=== PATIENT | female | born 1970 | race American Indian/Alaskan Native ===

== ENCOUNTER 2017-03-23 21:25 | Emergency (ER) | payer OTHER ==
[2017-03-23 22:37] LABS: Basophils % (Auto) 0.9 % (0.0-1.8); Eosinophils % (Auto) 5.2 % (0.0-4.3); Hematocrit 42.4 % (30.3-42.9); Hemoglobin 13.7 gm/dl (10.1-14.3); Mean Corpuscular HGB Conc 32 % (30-34); Mean Corpuscular Hemoglobin 29 pg (28-32); Mean Corpuscular Volume 89 fl (79-97); Platelet Count 343 K/mm3 (140-440); Red Blood Count 4.76 M/mm3 (3.65-5.03); Red Cell Distribution Width 15.1 % (13.2-15.2); White Blood Count 8.2 K/mm3 (4.5-11.0)
[2017-03-23 23:07] LABS: Anion Gap 20 mmol/L; BUN/Creatinine Ratio 23.33; Blood Urea Nitrogen 14 mg/dL (7-17); Calcium 9.8 mg/dL (8.4-10.2); Carbon Dioxide 21 mmol/L (22-30); Chloride 102.8 mmol/L (98-107); Glucose 91 mg/dL (65-100); Potassium 3.9 mmol/L (3.6-5.0); Sodium 140 mmol/L (137-145)
--- NOTE | 2017-03-23 23:10 | XRay Report ---
FINAL REPORT EXAM: XR CHEST ROUTINE 2V HISTORY: chest pain TECHNIQUE: PA and lateral chest radiographs PRIORS: None. FINDINGS: No focal consolidations are seen in the lungs and there are no pleural effusions.The cardiomediastinal silhouette is within normal limits for size and contour. No acute osseous abnormality is identified. IMPRESSION: 1. No definite radiographic evidence of acute cardiopulmonary disease.
--- NOTE | 2017-03-24 09:11 | Emergency Department Report ---
ED Chest Pain HPI - General Chief Complaint: Chest Pain Stated Complaint: ASTHMA/RYLAN Time Seen by Provider: 03/24/17 08:58 Source: patient, RN notes reviewed, old records reviewed Mode of arrival: Ambulatory Limitations: No Limitations - History of Present Illness Initial Comments: This is a 47-year-old female. She is previously unknown to me. She does not have a local primary care doctor. She has a past medical history of asthma and eczema. The patient presents to the ER complaining of right-sided and central chest wall pain. The pain is achy. It does not radiate to the back, arms or neck. There is no nausea, vomiting or diaphoresis. There is no exertional shortness of breath. There is no leg pain. There is no leg swelling. Does not take control tablets. No recent cocaine use. No recent aspirin use. No recent surgeries. Patient also complains of cough, wheezing, mucus production, "feels like my asthma is acting up." The pain has been present on and off since yesterday. it does not have exacerbating or relieving factors. MD Complaint: chest pain -: Gradual Onset: during rest Pain Location: substernal, right chest Pain Radiation: none Severity: mild Severity scale (0 -10): 5 Quality: aching Consistency: intermittent Improves With: nothing Worsens With: nothing re: denies: nausea, vomting, diaphoresis Other Symptoms: cough Treatments Prior to Arrival: none Aspirin use within the Past 7 Days: (0) No - Related Data On Oral Contraceptives: No Previous Rx's Medication Instructions Recorded Last Taken Type ALBUTEROL NEB's [Proventil 0.083% 2.5 mg IH TID PRN #1 box 06/12/14 10/13/14 Rx NEBS] Acetaminophen/Codeine 1 tab PO Q6H PRN #14 tab 06/12/14 06/20/14 Rx [Acetaminophen-Codeine #3 TAB] Prednisone [Prednisone 10 mg 10 mg PO .TAPER #1 tab.ds.pk 06/12/14 Unknown Rx (6-Day Pack, 21 Tabs)] traMADol [Ultram 50 MG tab] 50 mg PO Q6HR PRN #12 tablet 07/20/14 07/20/14 Rx Doxycycline [Vibramycin CAP] 100 mg PO BID #14 capsule 10/16/14 Unknown Rx Ibuprofen [Motrin] 800 mg PO Q8H PRN #30 tablet 10/16/14 Unknown Rx Methylergonovine [Methergine] 0.2 mg PO Q8HR #6 tablet 10/16/14 Unknown Rx Albuterol Sulfate [Proair 90 mcg IH Q4HR PRN #2 aer.pow.ba 03/24/17 Unknown Rx Respiclick] Aspirin [Adult Low Dose Aspirin EC] 81 mg PO QDAY #30 tablet. 03/24/17 Unknown Rx Allergies Allergy/AdvReac Type Severity Reaction Status Date / Time Penicillins Allergy Unknown Verified 06/12/14 01:17 EDT Heart Score - HEART Score History: Slightly suspicious EKG: Normal Age: < 45 Risk factors: No known risk factors Troponin: < normal limit HEART Score: 0 - Critical Actions Critical Actions: 0-3 pts:0.9-1.7%risk of adverse cardiac event.Candidate for discharge ED Review of Systems ROS: Stated complaint: ASTHMA/RYLAN Other details as noted in HPI Constitutional: denies: diaphoresis, fever, malaise Eyes: denies: vision change ENT: denies: epistaxis Respiratory: cough Cardiovascular: chest pain Gastrointestinal: denies: vomiting Genitourinary: denies: dysuria Musculoskeletal: denies: back pain Skin: denies: lesions Neurological: denies: weakness ED Past Medical Hx - Past Medical History Previous Medical History?: Yes Hx Hypertension: No Hx Congestive Heart Failure: No Hx Diabetes: No Hx Asthma: Yes Hx COPD: No Hx HIV: No Additional medical history: eczema - Surgical History Past Surgical History?: Yes Additional Surgical History: cyst removal, - Social History Smoking Status: Never Smoker - Medications Home Medications: Home Medications Medication Instructions Recorded Confirmed Last Taken Type ALBUTEROL NEB's [Proventil 0.083% 2.5 mg IH TID PRN #1 box 06/12/14 10/16/1412/23 Rx NEBS] Acetaminophen/Codeine 1 tab PO Q6H PRN #14 tab 06/12/14 10/16/14 06/20/14 Rx [Acetaminophen-Codeine #3 TAB] Prednisone [Prednisone 10 mg 10 mg PO .TAPER #1 tab.ds.pk 06/12/14 10/16/14 Unknown Rx (6-Day Pack, 21 Tabs)] traMADol [Ultram 50 MG tab] 50 mg PO Q6HR PRN #12 tablet 07/20/14 10/16/1407/20 Rx Doxycycline [Vibramycin CAP] 100 mg PO BID #14 capsule 10/16/14 Unknown Rx Ibuprofen [Motrin] 800 mg PO Q8H PRN #30 tablet 10/16/14 Unknown Rx Methylergonovine [Methergine] 0.2 mg PO Q8HR #6 tablet 10/16/14 Unknown Rx Albuterol Sulfate [Proair 90 mcg IH Q4HR PRN #2 aer.pow.ba 03/24/17 Unknown Rx Respiclick] Aspirin [Adult Low Dose Aspirin EC] 81 mg PO QDAY #30 tablet. 03/24/17 Unknown Rx ED Physical Exam - General Limitations: No Limitations General appearance: alert, in no apparent distress - Head Head exam: Present: atraumatic, normocephalic - Eye Eye exam: Present: normal appearance, EOMI. Absent: nystagmus - ENT ENT exam: Present: normal exam, normal orophraynx, mucous membranes moist, normal external ear exam - Neck Neck exam: Present: normal inspection, full ROM. Absent: tenderness, meningismus - Respiratory Respiratory exam: Present: normal lung sounds bilaterally. Absent: respiratory distress, wheezes, rales, rhonchi, stridor, chest wall tenderness, accessory muscle use, decreased breath sounds, prolonged expiratory - Cardiovascular Cardiovascular Exam: Present: regular rate, normal rhythm, normal heart sounds. Absent: bradycardia, tachycardia, systolic murmur, diastolic murmur, rubs, gallop - GI/Abdominal GI/Abdominal exam: Present: soft, normal bowel sounds. Absent: distended, tenderness, guarding, rebound, rigid, pulsatile mass - Extremities Exam Extremities exam: Present: normal inspection, full ROM, normal capillary refill. Absent: pedal edema, joint swelling, calf tenderness - Back Exam Back exam: Present: normal inspection, full ROM. Absent: tenderness, CVA tenderness (R), CVA tenderness (L), muscle spasm, paraspinal tenderness, vertebral tenderness - Neurological Exam Neurological exam: Present: alert, oriented X3, normal gait, other (Extraocular movements intact. Tongue midline. No facial droop. Facial sensation intact to light touch in the V1, V2, V3 distribution bilaterally. 5 and 5 strength in 4 extremities.. Sensation is intact to light touch in 4 extremities.). Absent : motor sensory deficit - Psychiatric Psychiatric exam: Present: normal affect, normal mood - Skin Skin exam: Present: warm, dry, intact, normal color. Absent: rash ED Course Vital Signs 03/23/17 03/24/17 03/24/17 21:45 04:03 08:46 Temperature 98.4 F 99.1 F Pulse Rate 86 78 Respiratory 18 20 Rate Blood Pressure 124/73 Blood Pressure 125/57 [Left] O2 Sat by Pulse 100 99 Oximetry 03/24/17 03/24/17 08:48 10:58 Temperature 98.6 F Pulse Rate 82 Respiratory 20 18 Rate Blood Pressure Blood Pressure 115/65 [Left] O2 Sat by Pulse 100 100 Oximetry - Reevaluation(s) Reevaluation #1: 03/24/17 10:19 d-dimer is negative. Patient is resting comfortably. Patient will be discharged. GABRIEL score - Gabriel Score Age > 65: (0) No Aspirin use within the Past 7 Days: (0) No 3 or more CAD Risk Factors: (0) No 2 or more Angina events in past 24 hrs: (0) No Known CAD with more than 50% Stenosis: (0) No Elevated Cardiac Markers: (0) No ST Deviation Greater than 0.5mm: (0) No GABRIEL Score: 0 ED Medical Decision Making - Lab Data Result diagrams: 03/23/17 22:09 03/23/17 22:09 Vital Signs 03/23/17 03/24/17 03/24/17 21:45 04:03 08:46 Temperature 98.4 F 99.1 F Pulse Rate 86 78 Respiratory 18 20 Rate Blood Pressure 124/73 Blood Pressure 125/57 [Left] O2 Sat by Pulse 100 99 Oximetry 03/24/17 08:48 Temperature Pulse Rate Respiratory 20 Rate Blood Pressure Blood Pressure [Left] O2 Sat by Pulse 100 Oximetry Lab Results 03/23/17 03/23/17 03/23/17 Range/Units 22:00 22:09 22:09 WBC 8.2 (4.5-11.0) K/mm3 RBC 4.76 (3.65-5.03) M/mm3 Hgb 13.7 (10.1-14.3) gm/dl Hct 42.4 (30.3-42.9) % MCV 89 (79-97) fl MCH 29 (28-32) pg MCHC 32 (30-34) % RDW 15.1 (13.2-15.2) % Plt Count 343 (140-440) K/mm3 Lymph % (Auto) 32.9 (13.4-35.0) % Baldwin % (Auto) 9.1 H (0.0-7.3) % Eos % (Auto) 5.2 H (0.0-4.3) % Baso % (Auto) 0.9 (0.0-1.8) % Lymph # 2.7 (1.2-5.4) K/mm3 Baldwin # 0.7 (0.0-0.8) K/mm3 Eos # 0.4 (0.0-0.4) K/mm3 Baso # 0.1 (0.0-0.1) K/mm3 Seg Neutrophils % 51.9 (40.0-70.0) % Seg Neutrophils # 4.3 (1.8-7.7) K/mm3 Sodium 140 (137-145) mmol/L Potassium 3.9 (3.6-5.0) mmol/L Chloride 102.8 (98-107) mmol/L Carbon Dioxide 21 L (22-30) mmol/L Anion Gap 20 mmol/L BUN 14 (7-17) mg/dL Creatinine 0.6 L (0.7-1.2) mg/dL Estimated GFR > 60 ml/min BUN/Creatinine Ratio 23.33 % Glucose 91 (65-100) mg/dL Calcium 9.8 (8.4-10.2) mg/dL Troponin T < 0.010 (0.00-0.029) ng/mL Urine HCG, Qual Negative (Negative) 03/24/17 03/24/17 Range/Units 00:15 03:41 WBC (4.5-11.0) K/mm3 RBC (3.65-5.03) M/mm3 Hgb (10.1-14.3) gm/dl Hct (30.3-42.9) % MCV (79-97) fl MCH (28-32) pg MCHC (30-34) % RDW (13.2-15.2) % Plt Count (140-440) K/mm3 Lymph % (Auto) (13.4-35.0) % Baldwin % (Auto) (0.0-7.3) % Eos % (Auto) (0.0-4.3) % Baso % (Auto) (0.0-1.8) % Lymph # (1.2-5.4) K/mm3 Baldwin # (0.0-0.8) K/mm3 Eos # (0.0-0.4) K/mm3 Baso # (0.0-0.1) K/mm3 Seg Neutrophils % (40.0-70.0) % Seg Neutrophils # (1.8-7.7) K/mm3 Sodium (137-145) mmol/L Potassium (3.6-5.0) mmol/L Chloride (98-107) mmol/L Carbon Dioxide (22-30) mmol/L Anion Gap mmol/L BUN (7-17) mg/dL Creatinine (0.7-1.2) mg/dL Estimated GFR ml/min BUN/Creatinine Ratio % Glucose (65-100) mg/dL Calcium (8.4-10.2) mg/dL Troponin T < 0.010 < 0.010 (0.00-0.029) ng/mL Urine HCG, Qual (Negative) - EKG Data -: EKG Interpreted by Mt EKG shows normal: sinus rhythm Rate: normal - EKG Data 03/24/17 09:27 EKG #1 demonstrates normal sinus, 89 bpm, normal intervals, normal axis, motion artifact, not consistent with STEMI. Unchanged from prior EKG. EKG #2 demonstrates normal sinus, 81 bpm, normal intervals, normal axis, not morphologically consistent with stemi - Radiology Data Radiology results: image reviewed X-ray of the chest is negative for acute disease - Medical Decision Making Differential diagnosis: Acute coronary syndrome, pulmonary embolus, asthma, anemia, pericardial effusion Pneumonia Assessment and plan: 47-year-old female who complains of chest pain and shortness of breath. She is low risk by GABRIEL score, low risk by heart score, troponin negative 3, EKG within normal limits 2, no pulmonary embolus or DVT risk factors, low risk by well's criteria, perc negative. Declines pain medication at this time. Not wheezing at this time. X-ray of the chest is negative. D-dimer ordered. Critical care attestation.: If time is entered above; I have spent that time in minutes in the direct care of this critically ill patient, excluding procedure time. ED Disposition Clinical Impression: Chest pain Disposition: DC-01 TO HOME OR SELFCARE Is pt being admited?: No Does the pt Need Aspirin: No Condition: Stable Instructions: Chest Pain (ED) Additional Instructions: Continue current outpatient medications. Follow up with any of the listed cardiology specialists within the next 3-5 days. Return to the ER right away with new pain, worsening pain, migration of pain, fevers, chills, confusion, chest pain, shortness of breath, (symptoms which are new, worsening or different ). Otherwise, take the medications as directed and follow up as directed. Prescriptions: Albuterol Sulfate [Proair Respiclick] 90 mcg IH Q4HR PRN #2 aer.pow.ba PRN Reason: Wheezing Aspirin [Adult Low Dose Aspirin EC] 81 mg PO QDAY #30 tablet. Referrals: PRIMARY MD DEBORAH [Primary Care Provider] - 3-5 Days YUAN GAONA MD [Staff Physician] - 3-5 Days MARIO ADAM MD [Staff Physician] - 3-5 Days
[2017-03-24 10:13] LABS: INR 1.01 (0.87-1.13)
[2017-03-24 10:59] VITALS: BP 115/65
== END 2017-03-24 10:58 | disposition home or self-care (01) ==
LOC: ED 21:25
DX: R07.89 Other chest pain (principal); R05 Cough; Z88.0 Allergy status to penicillin
CPT/HCPCS: 36415; 71020; 80048; 81025; 84484; 85025; 85379; 85610; 93005; 93010; 99285

== ENCOUNTER 2021-11-27 20:23 | Emergency (ER) | payer SELFPAY ==
[2021-11-27] MEDS ORDERED: diphenhydrAMINE 25 MG CAP PO ONE (20:42)
--- NOTE | 2021-11-27 21:43 | Emergency Department Report ---
ED General Adult HPI - General Chief complaint: Animal Bite Stated complaint: ANT BITE Time Seen by Provider: 11/27/21 20:40 Source: patient, EMS Mode of arrival: Ambulatory Limitations: No Limitations - History of Present Illness Initial comments: Is a 51-year-old female who presents for an 16 to right leg and hand. She takes itching. There is no erythema no swelling no laceration no bleeding no drainage. Symptoms are exacerbated by itch scratch cycle, symptoms are relieved by itch scratch cycle. There is no swelling, no shortness of breath no wheezing no chest pain no dizziness or lightheadedness. Patient denies allergies. Patient rates symptoms at 3/10 at this time. - Related Data Previous Rx's Medication Instructions Recorded Last Taken Type ALBUTEROL NEB's [Proventil 0.083% 2.5 mg IH TID PRN #1 box 06/12/14 10/13/14 Rx NEBS] Acetaminophen/Codeine 1 tab PO Q6H PRN #14 tab 06/12/14 06/20/14 Rx [Acetaminophen-Codeine #3 TAB] Prednisone [Prednisone 10 mg 10 mg PO .TAPER #1 tab.ds.pk 06/12/14 Unknown Rx (6-Day Pack, 21 Tabs)] traMADoL [Ultram 50 MG tab] 50 mg PO Q6HR PRN #12 tablet 07/20/14 07/20/14 Rx DOXYCYCLINE Hyclate [Vibramycin 100 mg PO BID #14 capsule 10/16/14 Unknown Rx CAP] Ibuprofen [Motrin] 800 mg PO Q8H PRN #30 tablet 10/16/14 Unknown Rx Methylergonovine [Methergine] 0.2 mg PO Q8HR #6 tablet 10/16/14 Unknown Rx Albuterol Sulfate [Proair 90 mcg IH Q4HR PRN #2 aer.pow.ba 03/24/17 Unknown Rx Respiclick] Aspirin [Adult Low Dose Aspirin EC] 81 mg PO QDAY #30 tablet.dr 03/24/17 Unknown Rx Famotidine [Pepcid] 20 mg PO BID 7 Days #14 tablet 11/27/21 Unknown Rx diphenhydrAMINE [Benadryl CAP] 25 mg PO Q8HR PRN 7 Days #30 11/27/21 Unknown Rx capsule predniSONE [Deltasone] 20 mg PO QDAY 5 Days #5 tab 11/27/21 Unknown Rx Allergies Allergy/AdvReac Type Severity Reaction Status Date / Time Penicillins Allergy Unknown Verified 06/12/14 01:17 EDT ED Review of Systems ROS: Stated complaint: ANT BITE Other details as noted in HPI Constitutional: denies: chills, fever Eyes: denies: eye pain, eye discharge, vision change ENT: denies: ear pain, throat pain Respiratory: denies: cough, shortness of breath, wheezing Cardiovascular: denies: chest pain, palpitations Endocrine: no symptoms reported Gastrointestinal: denies: abdominal pain, nausea, diarrhea Genitourinary: denies: urgency, dysuria, discharge Musculoskeletal: denies: back pain, joint swelling, arthralgia Skin: rash (Hand pruritus mild erythema no drainage no papules) Neurological: denies: headache, weakness, paresthesias Psychiatric: denies: anxiety, depression ED Past Medical Hx - Past Medical History Previous Medical History?: Yes Hx Hypertension: No Hx Congestive Heart Failure: No Hx Diabetes: No Hx Asthma: Yes Hx COPD: No Hx HIV: No Additional medical history: eczema - Surgical History Past Surgical History?: Yes Additional Surgical History: cyst removal, - Social History Smoking Status: Never Smoker - Medications Home Medications: Home Medications Medication Instructions Recorded Confirmed Last Taken Type ALBUTEROL NEB's [Proventil 0.083% 2.5 mg IH TID PRN #1 box 06/12/14 10/16/14 10/13/14 Rx NEBS] Acetaminophen/Codeine 1 tab PO Q6H PRN #14 tab 06/12/14 10/16/14 06/20/14 Rx [Acetaminophen-Codeine #3 TAB] Prednisone [Prednisone 10 mg 10 mg PO .TAPER #1 tab.ds.pk 06/12/14 10/16/14 Unknown Rx (6-Day Pack, 21 Tabs)] traMADoL [Ultram 50 MG tab] 50 mg PO Q6HR PRN #12 tablet 07/20/14 10/16/14 07/20/14 Rx DOXYCYCLINE Hyclate [Vibramycin 100 mg PO BID #14 capsule 10/16/14 Unknown Rx CAP] Ibuprofen [Motrin] 800 mg PO Q8H PRN #30 tablet 10/16/14 Unknown Rx Methylergonovine [Methergine] 0.2 mg PO Q8HR #6 tablet 10/16/14 Unknown Rx Albuterol Sulfate [Proair 90 mcg IH Q4HR PRN #2 aer.pow.ba 03/24/17 Unknown Rx Respiclick] Aspirin [Adult Low Dose Aspirin EC] 81 mg PO QDAY #30 tablet.dr 03/24/17 Unknown Rx Famotidine [Pepcid] 20 mg PO BID 7 Days #14 tablet 11/27/21 Unknown Rx diphenhydrAMINE [Benadryl CAP] 25 mg PO Q8HR PRN 7 Days #30 11/27/21 Unknown Rx capsule predniSONE [Deltasone] 20 mg PO QDAY 5 Days #5 tab 11/27/21 Unknown Rx ED Physical Exam - General Limitations: No Limitations General appearance: alert, in no apparent distress - Head Head exam: Present: atraumatic, normocephalic - Eye Eye exam: Present: normal appearance, PERRL, EOMI Pupils: Present: normal accommodation - ENT ENT exam: Present: normal orophraynx, mucous membranes moist - Neck Neck exam: Present: normal inspection, full ROM. Absent: tenderness, lymphadenopathy - Respiratory Respiratory exam: Present: normal lung sounds bilaterally. Absent: respiratory distress, wheezes, stridor, prolonged expiratory - Cardiovascular Cardiovascular Exam: Present: regular rate, normal rhythm, normal heart sounds. Absent: systolic murmur, diastolic murmur, rubs, gallop - GI/Abdominal GI/Abdominal exam: Present: soft, normal bowel sounds. Absent: distended, tenderness - Rectal Rectal exam: Present: deferred - External exam: Present: other (Deferred) - Extremities Exam Extremities exam: Present: normal inspection, full ROM, normal capillary refill. Absent: tenderness, pedal edema - Back Exam Back exam: Present: normal inspection, full ROM. Absent: CVA tenderness (R), CVA tenderness (L) - Neurological Exam Neurological exam: Present: alert, oriented X3, CN II-XII intact, normal gait - Psychiatric Psychiatric exam: Present: normal affect, normal mood - Skin Skin exam: Present: warm, dry, intact, normal color, erythema (Mild erythema), urticaria. Absent: rash, petechiae, abrasion, ecchymosis ED Course Vital Signs 11/27/21 20:41 Temperature 98.9 F Pulse Rate 80 Respiratory 16 Rate Blood Pressure 121/59 [Right] O2 Sat by Pulse 100 Oximetry ED Medical Decision Making - Medical Decision Making This is an 16 plan DC to home, Benadryl, prednisone Pepcid, wash with soap and water. Follow-up with your primary care doctor in 2 to 3 days. Patient denies chest pain no dizziness no lightheadedness nausea or vomiting. There is no fever or chills. Patient DC'd home in stable condition at this time. Patient verbalized agreement understanding with discharge plan. Critical care attestation.: If time is entered above; I have spent that time in minutes in the direct care of this critically ill patient, excluding procedure time. ED Disposition Clinical Impression: Insect sting Qualifiers: Encounter type: initial encounter Injury intent: accidental or unintentional Qualified Code(s): T63.481A - Toxic effect of venom of other arthropod, accidental (unintentional), initial encounter Disposition: HOME / SELF CARE / HOMELESS Is pt being admited?: No Does the pt Need Aspirin: No Condition: Stable Instructions: Insect Bite, Adult Additional Instructions: Medication as prescribed, follow-up with your doctor in 2 to 3 days. Return to emergency department for symptoms worsen. Prescriptions: diphenhydrAMINE [Benadryl CAP] 25 mg PO Q8HR PRN 7 Days #30 capsule PRN Reason: itching allergies predniSONE [Deltasone] 20 mg PO QDAY 5 Days #5 tab Famotidine [Pepcid] 20 mg PO BID 7 Days #14 tablet Referrals: KAL ACEVEDO MD [Staff Physician] - 3-5 Days Forms: Work/School Release Form(ED) Time of Disposition: 21:49
[2021-11-27 23:55] VITALS: BP 110/63
== END 2021-11-27 23:52 | disposition home or self-care (01) ==
LOC: ED 20:23
DX: T63.481A Toxic effect of venom of other arthropod, accidental (unintentional), initial encounter (principal); Z98.890 Other specified postprocedural states; Y92.89 Other specified places as the place of occurrence of the external cause; Z88.0 Allergy status to penicillin; Z79.899 Other long term (current) drug therapy
CPT/HCPCS: 99283